=== PATIENT | female | born 1960 | race Caucasian/White ===

== ENCOUNTER 2019-12-12 06:13 | Emergency (ER) | payer OTHER ==
[~2019-12-12] VITALS: Ht 157.5 cm; Wt 44.5 kg
[2019-12-12] MEDS ORDERED: WELLBUTRIN SR100 MG PO (06:48)
[2019-12-12] MEDS ORDERED: CORTISPORIN OTI10 M2 OTIC (07:04)
[2019-12-12 07:14] VITALS: BP 127/67
== END 2019-12-12 07:15 | disposition home or self-care (01) ==
LOC: ER 06:13
DX: H60.91 Unspecified otitis externa, right ear (principal); E11.9 Type 2 diabetes mellitus without complications; Z20.828 Contact with and (suspected) exposure to other viral communicable diseases; Z90.710 Acquired absence of both cervix and uterus; Z79.899 Other long term (current) drug therapy; Z88.0 Allergy status to penicillin